=== PATIENT | male | born 1965 | race Caucasian/White ===

== ENCOUNTER → 2017-07-13 | Outpatient (CLI) | payer BC ==
[~2017-07-13] MED LIST: ALBU8.5H12 IH; ESOM40CA42 PO; NO ROUTINE MEDS; OMEP-218 PO
--- NOTE | 2017-07-13 09:24 | RADIOLOGY IMAGING REPORT ---
FACILITY: [facility] - [place] PATIENT NAME: Tiburcio Perea : 1965 MR: [id number] V: [id number] EXAM DATE: ORDERING PHYSICIAN: LARISSA GREEN TECHNOLOGIST: Location: [facility] - [place] Patient: Tiburcio Perea : 1965 Visit/Account:[id number] Date of Sevice: 07/13/2017 Study: CT scan of the paranasal sinuses Indication:Sinusitis Comparison study:None Technique: Multiple axial images were obtained through the paranasal sinuses. Coronal and sagittal 2- dimensional reconstructions were made from the original data set. One of the following dose optimization techniques was utilized in the performance of this exam: Autom ated exposure control; adjustment of the mA and/or kV according to the patient's size; or use of an i terative reconstruction technique. Specific details can be referenced in the facility's radiology C T exam operational policy. Findings: Maxillary sinuses: There is polypoid soft tissue present within the inferior maxillary antra bilatera lly. This is more extensive on the left than the right. These likely represent retention cysts, how ever polyps cannot be ruled out. Ethmoid air cells: There is mild patchy opacification of the anterior ethmoid air cells. There is no evidence of expansion of the ethmoid air cells. Sphenoid sinus:Unremarkable Frontal sinus:Unremarkable Ostiomeatal units:Patent bilaterally the patient is status post bilateral uncinate process resection. The neoostiomeatal units are widely patent. Nasal septum:Midline. There are areas of polypoid soft tissue within the nasal cavities bilaterally. This is consistent wi th polyposis. IMPRESSION: Nasal polyposis. Patient status post bilateral paranasal sinus surgery. Mild patchy opa cification of the anterior ethmoid air cells. Report Dictated By: Larissa Blunt at 07/13/2017 9:16 AM Report E-Signed By: Larissa Blunt at 07/13/2017 9:20 AM WSN:[id number]
== END ==
LOC: CT 02:03
PROVIDERS: ATTEND Otolaryngology
DX: J30.9 Allergic rhinitis, unspecified (principal); J32.9 Chronic sinusitis, unspecified; J33.8 Other polyp of sinus
CPT/HCPCS: 70486